=== PATIENT | female | born 1990 | race African-American/Black ===

== ENCOUNTER 2016-06-25 18:27 | Emergency (ER) | payer BC, OTHER ==
[~2016-06-25] VITALS: Ht 160 cm; Wt 89.8 kg
[~2016-06-25 18:27] MED LIST: HYDROCODON-ACET15 ML PO; KEFLEX250 MG/5 M PO; KEFLEX500 MG PO; NOHOMEMEDICATIONS; PHENTERMINE H37.5 MG PO; PRENATAL TABLE1 EAC3 PO
[2016-06-25] MEDS ORDERED: IBUPROFEN 600600 M1 PO (20:03)
[2016-06-25 20:14] VITALS: BP 139/98
== END 2016-06-25 20:15 | disposition home or self-care (01) ==
LOC: ER 18:27
DX: S60.211A Contusion of right wrist, initial encounter (principal); S80.01XA Contusion of right knee, initial encounter; Z90.89 Acquired absence of other organs; W01.0XXA Fall on same level from slipping, tripping and stumbling without subsequent striking against object, initial encounter; Y93.89 Activity, other specified; Y92.512 Supermarket, store or market as the place of occurrence of the external cause; Y99.8 Other external cause status

== ENCOUNTER 2017-11-08 09:59 | Emergency (ER) | payer OTHER ==
[~2017-11-08] VITALS: Ht 160 cm; Wt 121.6 kg
[~2017-11-08 09:59] MED LIST changes: +IBUPROFEN 600600 M1 PO
[2017-11-08] MEDS ORDERED: PHENTERMINE HCL30 MG PO (10:42)
[2017-11-08 11:10] LABS: URINE BILIRUBIN NEGATIVE (Negative); URINE BLOOD NEGATIVE (Negative); URINE CLARITY CLEAR; URINE COLOR YELLOW; URINE GLUCOSE-RANDOM* NEGATIVE (Negative); URINE KETONES NEGATIVE (Negative); URINE NITRITE-REFLEX NEGATIVE (Negative); URINE PROTEIN (DIPSTICK) NEGATIVE (Negative); URINE SPECIFIC GRAVITY 1.015 (1.005-1.035); URINE UROBILINOGEN 0.2 E.U./dl (0.2-1.0)
[2017-11-08 11:11] LABS: URINE LEUKOCYTES-REFLEX 3+ (Negative)
[2017-11-08 11:36] LABS: ABSOLUTE NEUTROPHILS 3.3 thou/uL (1.4-8.2); BASOPHILS 1.2 % (0.0-2.0); EOSINOPHILS 0.9 % (0.0-3.0); HEMATOCRIT 37.1 % (37.0-47.0); HEMOGLOBIN 12.2 gm/dL (12.0-15.0); LYMPHOCYTES 38.5 % (24.0-44.0); MCH 26.9 pg (26.0-34.0); MCHC 32.9 g/dL (28.0-37.0); MCV 81.8 fL (80.0-100.0); MONOCYTES 7.5 % (1.0-8.0); PLATELET COUNT 323 thou/uL (150-400); POLYS 51.9 % (36.0-66.0); RBC 4.54 mil/uL (4.20-5.00); RDW 16.2 % (10.5-14.5); WBC 6.3 thou/uL (4.0-11.0)
[2017-11-08 11:45] LABS: CALCIUM 9.1 mg/dL (8.5-10.1); CREATININE 0.8 mg/dL (0.6-1.0); POTASSIUM 3.9 mmol/L (3.5-5.1)
[2017-11-08 11:51] LABS: TOTAL BILIRUBIN 0.4 mg/dL (<0.1-1.0); TOTAL PROTEIN 7.5 g/dL (6.4-8.2)
[2017-11-08] MEDS ORDERED: KEFLEX500 M1 PO (12:03)
[2017-11-08 12:12] LABS: SQUAMOUS >10 Many /LPF (0-3)
[2017-11-08 12:13] LABS: CASTS None Seen /LPF (None Seen); CRYSTALS None Seen /LPF (None Seen); URINE WBC-REFLEX >25 Many /HPF (0-5)
[2017-11-08 12:14] LABS: URINE RBC None Seen /HPF (0-2)
[2017-11-08 12:16] LABS: BACTERIA-REFLEX >30 Many /HPF (None Seen)
[2017-11-08 12:21] VITALS: BP 153/95
== END 2017-11-08 12:24 | disposition home or self-care (01) ==
LOC: ER 09:59
PROVIDERS: Nurse Practitioner Family
DX: A59.00 Urogenital trichomoniasis, unspecified (principal); N39.0 Urinary tract infection, site not specified